=== PATIENT | male | born 1985 | race American Indian/Alaskan Native ===

== ENCOUNTER 2016-07-13 09:07 | Emergency (ER) | payer SELFPAY ==
[2016-07-13 09:16] VITALS: BP 149/94
--- NOTE | 2016-07-13 13:04 | Emergency Department Report ---
ED ENT HPI - General Chief complaint: Earache Stated complaint: RT EAR INFECTION Source: patient Mode of arrival: Ambulatory Limitations: No Limitations - History of Present Illness Initial comments: 31-year-old -[place] male complains of right ear ache for a week. Patient reports no relief using [id number] medications. Patient reports no past medical history currently takes no meds. There is no alleviating factors or aggravating factors. Patient has no known drug allergies. MD complaint: ear pain -: week(s) (1) - Related Data Previous Rx's Medication Instructions Recorded Last Taken Type Amoxicillin [Amoxicillin TAB] 875 mg PO BID #14 tablet 07/13/16 Unknown Rx Ofloxacin 0.3% [Floxin Otic] 3 drop OT QDAY #1 bottle 07/13/16 Unknown Rx Allergies Allergy/AdvReac Type Severity Reaction Status Date / Time No Known Allergies Allergy Unverified 07/13/16 09:14 ED Dental HPI - General Chief complaint: Earache Stated complaint: RT EAR INFECTION Source: patient Mode of arrival: Ambulatory Limitations: No Limitations - Related Data Previous Rx's Medication Instructions Recorded Last Taken Type Amoxicillin [Amoxicillin TAB] 875 mg PO BID #14 tablet 07/13/16 Unknown Rx Ofloxacin 0.3% [Floxin Otic] 3 drop OT QDAY #1 bottle 07/13/16 Unknown Rx Allergies Allergy/AdvReac Type Severity Reaction Status Date / Time No Known Allergies Allergy Unverified 07/13/16 09:14 ED Review of Systems ROS: Stated complaint: RT EAR INFECTION Other details as noted in HPI Constitutional: denies: chills, fever Eyes: denies: eye pain, eye discharge, vision change ENT: ear pain Respiratory: denies: cough, shortness of breath, wheezing Cardiovascular: denies: chest pain, palpitations Endocrine: no symptoms reported Gastrointestinal: denies: abdominal pain, nausea, diarrhea Genitourinary: denies: urgency, dysuria Musculoskeletal: denies: back pain, joint swelling, arthralgia Skin: denies: rash, lesions Neurological: denies: headache, weakness, paresthesias ED Past Medical Hx - Past Medical History Previous Medical History?: Yes Hx Hypertension: Yes (no meds) - Surgical History Past Surgical History?: No - Social History Smoking Status: Current Every Day Smoker Substance Use Type: Alcohol, Other - Medications Home Medications: Home Medications Medication Instructions Recorded Confirmed Last Taken Type Amoxicillin [Amoxicillin TAB] 875 mg PO BID #14 tablet 07/13/16 Unknown Rx Ofloxacin 0.3% [Floxin Otic] 3 drop OT QDAY #1 bottle 07/13/16 Unknown Rx ED Physical Exam - General Limitations: No Limitations General appearance: alert, in no apparent distress - Head Head exam: Present: atraumatic, normocephalic - Eye Eye exam: Present: normal appearance - Expanded ENT Exam Expanded TM/Canal exam: Erythema: Right TM, Mastoid Tenderness: Right TM, Canal Discharge : Right TM, Canal Tenderness: Right TM Mouth exam: Present: normal external inspection Throat exam: Positive: normal inspection. Negative: tonsillomegaly - Neck Neck exam: Present: normal inspection, full ROM. Absent: tenderness, lymphadenopathy ED Course Vital Signs 07/13/16 09:14 Temperature 99.2 F Pulse Rate 89 Respiratory 20 Rate Blood Pressure 149/94 O2 Sat by Pulse 99 Oximetry ED Medical Decision Making - Medical Decision Making Patient's been evaluated by this provider fast track. Discussed with patient this appears to be otitis external. Discussed with patient that we will place him on eardrops antibiotics. Discussed with patient that we will refer him to ear nose and throat provider. Discussed with patient he can take [id number] pain relief medication. Patient verbalizes understanding. Critical care attestation.: If time is entered above; I have spent that time in minutes in the direct care of this critically ill patient, excluding procedure time. ED Disposition Clinical Impression: External otitis of right ear Qualifiers: Otitis externa type: unspecified type Chronicity: acute Qualified Code(s): H60.501 - Unspecified acute noninfective otitis externa, right ear Disposition: DISCHARGED TO HOME OR SELFCARE Is pt being admited?: No Does the pt Need Aspirin: No Condition: Stable Instructions: Otitis Externa (ED) Additional Instructions: Take antibiotics as prescribed. Use eardrops antibiotics as prescribed. Follow up with her primary care provider or ear nose and throat. Prescriptions: Amoxicillin [Amoxicillin TAB] 875 mg PO BID #14 tablet Ofloxacin 0.3% [Floxin Otic] 3 drop OT QDAY #1 bottle Referrals: PRIMARY CAREMD [Primary Care Provider] - 3-5 Days LIOR MOREIRA MD [Staff Physician] - 3-5 Days Forms: Work/School Release Form(ED)
== END 2016-07-13 13:13 | disposition home or self-care (01) ==
LOC: ED 09:07
DX: H60.501 Unspecified acute noninfective otitis externa, right ear (principal); I10 Essential (primary) hypertension; F17.200 Nicotine dependence, unspecified, uncomplicated
CPT/HCPCS: 99282

== ENCOUNTER 2018-12-01 22:19 | Emergency (ER) | payer SELFPAY ==
[2018-12-01 22:32] VITALS: BP 164/88
[2018-12-01 22:59] LABS: Basophils % (Auto) 0.3 % (0.0-1.8); Hematocrit 48.5 % (35.5-45.6); Lymphocytes # (Auto) 1.9 K/mm3 (1.2-5.4); Mean Corpuscular HGB Conc 35 % (32-34); Mean Corpuscular Volume 89 fl (84-94); Monocytes # (Auto) 0.3 K/mm3 (0.0-0.8); Monocytes % (Auto) 2.4 % (0.0-7.3); Platelet Count 231 K/mm3 (140-440); Red Blood Count 5.44 M/mm3 (3.65-5.03); Red Cell Distribution Width 13.4 % (13.2-15.2)
[2018-12-01 23:24] LABS: Alanine Aminotransferase 22 units/L (7-56); BUN/Creatinine Ratio 11; Blood Urea Nitrogen 11 mg/dL (9-20); Calcium 10.2 mg/dL (8.4-10.2); Hemolysis Index 8
[2018-12-01 23:49] LABS: Bilirubin,Urine NEG (Negative); Blood,Urine NEG (Negative); Color,Urine Yellow (Yellow); Mucus,Urine FEW /HPF; Urobilinogen,Urine < 2.0 mg/dL (<2.0); WBC,Urine < 1.0 /HPF (0.0-6.0)
[2018-12-02] MEDS ORDERED: NACL 0.9% 1000 ML 1,000 ML IV ONE (00:59)
[2018-12-02] MEDS ORDERED: ZOFRAN IV STA (00:59)
--- NOTE | 2018-12-02 01:04 | Emergency Department Report ---
ED N/V/D HPI - General Chief complaint: Abdominal Pain Stated complaint: ABD PAIN, VOMITING Time Seen by Provider: 12/02/18 00:36 Source: patient Mode of arrival: Ambulatory Limitations: No Limitations - History of Present Illness Initial comments: 33-year-old [place]ian male as well as department complaining of sudden onset of nausea and vomiting and some mild diarrhea started after he started taking a drug detox medication. The drug detox was a natural detoxification that he bought off of [employer]. He states that he takes excessive amount of THC and has been trying to detox. Thanks that's when his symptoms began to emerge. She thinks he is experiencing some issues without the THC and also the detoxification medication. Also been having some weight loss, cough on and off for the last 7 months. About 7 months ago. He was around 230-240 pounds but has intermittently since that time due to a decreased appetite. States that he primarily drinks fluids, drinks alcohol and smokes THC and cigarettes. No hemoptysis, hematemesis, no hematochezia, no melanoma, no syncope, no seizure activity. MD complaint: nausea, vomiting, abdominal pain -: Sudden Description of Vomiting: watery Associated Abdominal Pain: Yes Location: epigastric Radiation: none Severity: mild Quality: aching, sharp Consistency: intermittent Improves with: none Worsens with: none Associated Symptoms: nausea/vomiting. denies: myalgias, chest pain, diaphoresis, malaise, shortness of breath, syncope, weakness - Related Data Previous Rx's Medication Instructions Recorded Last Taken Type Amoxicillin [Amoxicillin TAB] 875 mg PO BID #14 tablet 07/13/16 Unknown Rx Ofloxacin 0.3% [Floxin 0.3% Otic] 3 drop OT QDAY #1 bottle 07/13/16 Unknown Rx Ondansetron [Zofran Odt] 4 mg PO Q8HR #20 tab.rapdis 01/15/18 Unknown Rx Hyoscyamine Subl [Levsin Sl 0.125 0.125 mg SL Q6HR PRN #20 tab 12/02/18 Unknown Rx TAB] Ondansetron [Zofran ODT TAB] 8 mg PO Q12HR #14 tab.rapdis 12/02/18 Unknown Rx Allergies Allergy/AdvReac Type Severity Reaction Status Date / Time No Known Allergies Allergy Verified 01/15/18 23:41 ED Review of Systems ROS: Stated complaint: ABD PAIN, VOMITING Other details as noted in HPI Comment: All other systems reviewed and negative ED Past Medical Hx - Past Medical History Previous Medical History?: Yes Hx Hypertension: Yes (no meds) - Surgical History Past Surgical History?: Yes Additional Surgical History: hernia repair - Social History Smoking Status: Current Every Day Smoker - Medications Home Medications: Home Medications Medication Instructions Recorded Confirmed Last Taken Type Amoxicillin [Amoxicillin TAB] 875 mg PO BID #14 tablet 07/13/16 Unknown Rx Ofloxacin 0.3% [Floxin 0.3% Otic] 3 drop OT QDAY #1 bottle 07/13/16 Unknown Rx Ondansetron [Zofran Odt] 4 mg PO Q8HR #20 tab.rapdis 01/15/18 Unknown Rx Hyoscyamine Subl [Levsin Sl 0.125 0.125 mg SL Q6HR PRN #20 tab 12/02/18 Unknown Rx TAB] Ondansetron [Zofran ODT TAB] 8 mg PO Q12HR #14 tab.rapdis 12/02/18 Unknown Rx ED Physical Exam - General Limitations: No Limitations General appearance: alert, in no apparent distress - Head Head exam: Present: atraumatic, normocephalic - Eye Eye exam: Present: normal appearance, PERRL - ENT ENT exam: Present: normal exam, mucous membranes moist - Neck Neck exam: Present: normal inspection, full ROM - Respiratory Respiratory exam: Present: normal lung sounds bilaterally. Absent: respiratory distress, wheezes, rales, chest wall tenderness, accessory muscle use - Cardiovascular Cardiovascular Exam: Present: regular rate, normal rhythm. Absent: systolic murmur, diastolic murmur, rubs, gallop - GI/Abdominal GI/Abdominal exam: Present: soft, tenderness (the epigastric and mid gastric region. No willi sign, no Rovsing, no Ramírez Andrade), normal bowel sounds. Absent: guarding, hyperactive bowel sounds, hypoactive bowel sounds, organomegaly, mass, bruit, pulsatile mass - Rectal Rectal exam: Present: deferred - Extremities Exam Extremities exam: Present: normal inspection - Back Exam Back exam: Present: normal inspection - Neurological Exam Neurological exam: Present: alert, oriented X3 - Psychiatric Psychiatric exam: Present: normal affect, normal mood - Skin Skin exam: Present: warm, dry, intact, normal color. Absent: rash ED Course Vital Signs 12/01/18 22:30 Temperature 97.5 F L Pulse Rate 61 Respiratory 18 Rate Blood Pressure 164/88 O2 Sat by Pulse 100 Oximetry ED Medical Decision Making - Lab Data Result diagrams: 12/01/18 22:42 12/01/18 22:42 - Medical Decision Making 33-year-old -E[place] male, sore THC with frequent use presents with nausea and diarrhea, which may be related to partial detoxification, also possibly because detox tablets. He is using to rid himself the illicit drug. Laboratory data was relatively benign acute processes. Advised him of the need to follow-up with the primary care provider for further evaluation of his reported weight loss that was due to his appetite also recommend the [facility] substance abuse program to help as well. Critical care attestation.: If time is entered above; I have spent that time in minutes in the direct care of this critically ill patient, excluding procedure time. ED Disposition Clinical Impression: Nausea & vomiting, Moderate tetrahydrocannabinol (THC) dependence Disposition: DC- TO HOME OR SELFCARE Is pt being admited?: No Does the pt Need Aspirin: No Condition: Stable Instructions: Acute Nausea and Vomiting (ED), Cannabis Abuse (ED) Additional Instructions: To follow-up with primary care provider for further evaluation of your weight loss, nausea and vomiting. Laboratory data was was benign. CT scan showed no acute processes Prescriptions: Hyoscyamine Subl [Levsin Sl 0.125 TAB] 0.125 mg SL Q6HR PRN #20 tab PRN Reason: abdominal cramps and spasms Ondansetron [Zofran ODT TAB] 8 mg PO Q12HR #14 tab.rapdis Referrals: [facility] [Provider Group] - 3-5 Days [facility] [Provider Group] - 3-5 Days
--- NOTE | 2018-12-02 02:04 | Cat Scan Report ---
CT ABDOMEN AND PELVIS WITH CONTRAST INDICATION: MAIN: upper abdominal pain, NAUSEA, VOMITING, DIARRHEA. 100 ML OMNIAPQUE 300. TECHNIQUE: Axial CT images were obtained through the abdomen and pelvis after 100 cc Omnipaque [address] scans at this location are performed using CT dose reduction for ALARA by means of automated exposure control. COMPARISON: None available. FINDINGS: LOWER CHEST: No significant abnormality. LIVER: No significant abnormality. GALLBLADDER: No significant abnormality. BILE DUCTS: No significant abnormality. PANCREAS: No significant abnormality. SPLEEN: No significant abnormality. ADRENALS: No significant abnormality. RIGHT KIDNEY and URETER: No significant abnormality. LEFT KIDNEY and URETER: No significant abnormality. STOMACH and SMALL BOWEL: No significant abnormality. COLON: No significant abnormality. APPENDIX: No significant abnormality. PERITONEUM: No free fluid. No free air. No fluid collection. LYMPH NODES: No significant adenopathy. AORTA and ARTERIES: No significant abnormality. IVC and VEINS: No significant abnormality. URINARY BLADDER: No significant abnormality. REPRODUCTIVE ORGANS: No significant abnormality. ADDITIONAL FINDINGS: None. SKELETAL SYSTEM: No significant abnormality. IMPRESSION: 1. No significant abnormality. Signer Name: Darrell Rojas MD Signed: 12/02/2018 2:00 AM Workstation Name: [id number]
== END 2018-12-02 03:45 | disposition home or self-care (01) ==
LOC: ED 22:19
DX: F19.20 Other psychoactive substance dependence, uncomplicated (principal); R11.2 Nausea with vomiting, unspecified
CPT/HCPCS: 36415; 74177; 80053; 81001; 83690; 85025; 96361; 96374; 99284; J2405; J7030; Q9967

== ENCOUNTER 2020-04-17 08:05 | Emergency (ER) | payer SELFPAY ==
[2020-04-17 08:12] VITALS: BP 153/102
[2020-04-17 09:17] LABS: Basophils % (Auto) 0.2 % (0.0-1.8); Eosinophils # (Auto) 0.1 K/mm3 (0.0-0.4); Eosinophils % (Auto) 0.4 % (0.0-4.3); Hematocrit 46.9 % (35.5-45.6); Hemoglobin 16.3 gm/dl (11.8-15.2); Lymphocytes # (Auto) 2.3 K/mm3 (1.2-5.4); Lymphocytes % (Auto) 14.7 % (13.4-35.0); Mean Corpuscular HGB Conc 35 % (32-34); Mean Corpuscular Volume 89 fl (84-94); Monocytes # (Auto) 0.5 K/mm3 (0.0-0.8); Monocytes % (Auto) 3.2 % (0.0-7.3); Platelet Count 205 K/mm3 (140-440); Red Cell Distribution Width 13.5 % (13.2-15.2)
[2020-04-17 09:28] LABS: Bilirubin,Urine NEG (Negative); Blood,Urine SM (Negative); Color,Urine Yellow (Yellow); Mucus,Urine 3+ /HPF; Protein,Urine <15 mg/dL mg/dL (Negative); RBC,Urine < 1.0 /HPF (0.0-6.0); Urobilinogen,Urine < 2.0 mg/dL (<2.0); WBC,Urine < 1.0 /HPF (0.0-6.0)
[2020-04-17 09:38] LABS: Alanine Aminotransferase 19 units/L (7-56); Albumin 4.9 g/dL (3.9-5); BUN/Creatinine Ratio 7; Blood Urea Nitrogen 8 mg/dL (9-20); Calcium 10.1 mg/dL (8.4-10.2); Hemolysis Index 9
--- NOTE | 2020-04-17 10:11 | Emergency Department Report ---
ED General Adult HPI - General Chief complaint: Nausea/Vomiting/Diarrhea Stated complaint: VOMITTING/NAUSEA Time Seen by Provider: 04/17/20 08:13 Source: patient Mode of arrival: Ambulatory Limitations: No Limitations - History of Present Illness Initial comments: 35-year-old -Irish male patient presents with complaints of body aches, chills, and vomiting x3 days. He states history of hypertension. Patient denies any cough, shortness of breath, fever, sweats, headache, dizziness, abdominal pain, hematemesis/coffee-ground emesis, diarrhea, or urinary symptoms. Patient states the vomiting occurs usually just once a day in the morning. He states he is still tolerating foods and fluids. No history of abdominal surgeries per patient - Related Data Previous Rx's Medication Instructions Recorded Last Taken Type Amoxicillin [Amoxicillin TAB] 875 mg PO BID #14 tablet 07/13/16 Unknown Rx Ofloxacin 0.3% [Floxin 0.3% Otic] 3 drop OT QDAY #1 bottle 07/13/16 Unknown Rx Ondansetron [Zofran Odt] 4 mg PO Q8HR #20 tab.rapdis 01/15/18 Unknown Rx Hyoscyamine Subl [Levsin Sl 0.125 0.125 mg SL Q6HR PRN #20 tab 12/02/18 Unknown Rx TAB] Ondansetron [Zofran ODT TAB] 8 mg PO Q12HR #14 tab.rapdis 12/02/18 Unknown Rx Ondansetron [Zofran Odt] 4 mg PO Q8HR PRN #10 tab.rapdis 04/17/20 Unknown Rx Allergies Allergy/AdvReac Type Severity Reaction Status Date / Time No Known Allergies Allergy Verified 04/17/20 08:06 ED Review of Systems ROS: Stated complaint: VOMITTING/NAUSEA Other details as noted in HPI Constitutional: denies: chills, diaphoresis, fever, malaise, weakness Respiratory: denies: cough, shortness of breath Cardiovascular: denies: chest pain Gastrointestinal: nausea, vomiting. denies: abdominal pain, diarrhea, constipation Musculoskeletal: denies: joint swelling, arthralgia Skin: denies: rash, lesions, change in color Neurological: denies: headache Hematological/Lymphatic: denies: easy bleeding ED Past Medical Hx - Past Medical History Hx Hypertension: Yes (no meds) Hx Psychiatric Treatment: Yes - Surgical History Additional Surgical History: hernia repair - Social History Smoking Status: Current Every Day Smoker Substance Use Type: None - Medications Home Medications: Home Medications Medication Instructions Recorded Confirmed Last Taken Type Amoxicillin [Amoxicillin TAB] 875 mg PO BID #14 tablet 07/13/16 Unknown Rx Ofloxacin 0.3% [Floxin 0.3% Otic] 3 drop OT QDAY #1 bottle 07/13/16 Unknown Rx Ondansetron [Zofran Odt] 4 mg PO Q8HR #20 tab.rapdis 01/15/18 Unknown Rx Hyoscyamine Subl [Levsin Sl 0.125 0.125 mg SL Q6HR PRN #20 tab 12/02/18 Unknown Rx TAB] Ondansetron [Zofran ODT TAB] 8 mg PO Q12HR #14 tab.rapdis 12/02/18 Unknown Rx Ondansetron [Zofran Odt] 4 mg PO Q8HR PRN #10 tab.rapdis 04/17/20 Unknown Rx ED Physical Exam - General Limitations: No Limitations ED Course Vital Signs 04/17/20 08:11 Temperature 98.7 F Pulse Rate 77 Respiratory 20 Rate Blood Pressure 153/102 O2 Sat by Pulse 100 Oximetry ED Medical Decision Making - Lab Data Result diagrams: 04/17/20 09:01 04/17/20 09:01 Lab Results 04/17/20 04/17/20 04/17/20 Range/Units 08:29 09:01 09:01 WBC 15.5 H (4.5-11.0) K/mm3 RBC 5.30 H (3.65-5.03) M/mm3 Hgb 16.3 H (11.8-15.2) gm/dl Hct 46.9 H (35.5-45.6) % MCV 89 (84-94) fl MCH 31 (28-32) pg MCHC 35 H (32-34) % RDW 13.5 (13.2-15.2) % Plt Count 205 (140-440) K/mm3 Lymph % (Auto) 14.7 (13.4-35.0) % [place] % (Auto) 3.2 (0.0-7.3) % Eos % (Auto) 0.4 (0.0-4.3) % Baso % (Auto) 0.2 (0.0-1.8) % Lymph # (Auto) 2.3 (1.2-5.4) K/mm3 [place] # (Auto) 0.5 (0.0-0.8) K/mm3 Eos # (Auto) 0.1 (0.0-0.4) K/mm3 Baso # (Auto) 0.0 (0.0-0.1) K/mm3 Seg Neutrophils % 81.5 H (40.0-70.0) % Seg Neutrophils # 12.6 H (1.8-7.7) K/mm3 Sodium 143 (137-145) mmol/L Potassium 4.8 (3.6-5.0) mmol/L Chloride 103.5 (98-107) mmol/L Carbon Dioxide 31 H (22-30) mmol/L Anion Gap 13 mmol/L BUN 8 L (9-20) mg/dL Creatinine 1.2 (0.8-1.3) mg/dL Estimated GFR > 60 ml/min BUN/Creatinine Ratio 7 % Glucose 99 (75-100) mg/dL Calcium 10.1 (8.4-10.2) mg/dL Total Bilirubin 0.30 (0.1-1.2) mg/dL AST 17 (5-40) units/L ALT 19 (7-56) units/L Alkaline Phosphatase 44 (35-129) units/L Total Protein 7.9 (6.3-8.2) g/dL Albumin 4.9 (3.9-5) g/dL Albumin/Globulin Ratio 1.6 % Lipase 38 (13-60) units/L Urine Color Yellow (Yellow) Urine Turbidity Clear (Clear) Urine pH 5.0 (5.0-7.0) Ur Specific [place] 1.011 (1.003-1.030) Urine Protein <15 mg/dl (Negative) mg/dL Urine Glucose (UA) Neg (Negative) mg/dL Urine Ketones Neg (Negative) mg/dL Urine Blood Sm (Negative) Urine Nitrite Neg (Negative) Urine Bilirubin Neg (Negative) Urine Urobilinogen < 2.0 (<2.0) mg/dL Ur Leukocyte Esterase Neg (Negative) Urine WBC (Auto) < 1.0 (0.0-6.0) /HPF Urine RBC (Auto) < 1.0 (0.0-6.0) /HPF U Epithel Cells (Auto) < 1.0 (0-13.0) /HPF Urine Mucus 3+ /HPF - Radiology Data Radiology results: report reviewed CHEST 2 VIEWS INDICATION / CLINICAL INFORMATION: fatigue, elevated WBCs. COMPARISON: None available. FINDINGS: SUPPORT DEVICES: None. HEART / MEDIASTINUM: No significant abnormality. LUNGS / PLEURA: Clear lungs. No significant pleural effusion. No pneumothorax. ADDITIONAL FINDINGS: No significant additional findings. IMPRESSION: 1. No acute abnormality of the chest. - Medical Decision Making 35-year-old -Irish male patient presents with complaints of body aches, chills, and vomiting x3 days. He states history of hypertension. Patient denies any cough, shortness of breath, fever, sweats, headache, dizziness, abdominal pain, hematemesis/coffee-ground emesis, diarrhea, or urinary symptoms. Patient states the vomiting occurs usually just once a day in the morning. He states he is still tolerating foods and fluids. No history of abdominal surgeries per patient No abdominal pain noted on exam. White count noted to be 15.5. Chest x-ray is negative for any acute abnormalities. Patient states he is feeling well. WNL d ischarge home. Strict return precautions were discussed in detail with patient who verbalized understanding. Patient to follow-up with primary care doctor in 3 to 5 days. Critical care attestation.: If time is entered above; I have spent that time in minutes in the direct care of this critically ill patient, excluding procedure time. ED Disposition Clinical Impression: Viral syndrome Nausea & vomiting Qualifiers: Vomiting type: unspecified Vomiting Intractability: non-intractable Qualified Code(s): R11.2 - Nausea with vomiting, unspecified Disposition: DC-01 TO HOME OR SELFCARE Is pt being admited?: No Condition: Stable Instructions: Nausea and Vomiting, Adult, [id number], Viral Illness, Adult Prescriptions: Ondansetron [Zofran Odt] 4 mg PO Q8HR PRN #10 tab.rapdis PRN Reason: Nausea Referrals: PRIMARY CARE,MD [Primary Care Provider] - 3-5 Days
--- NOTE | 2020-04-17 11:01 | XRay Report ---
CHEST 2 VIEWS INDICATION / CLINICAL INFORMATION: fatigue, elevated WBCs. COMPARISON: None available. FINDINGS: SUPPORT DEVICES: None. HEART / MEDIASTINUM: No significant abnormality. LUNGS / PLEURA: Clear lungs. No significant pleural effusion. No pneumothorax. ADDITIONAL FINDINGS: No significant additional findings. IMPRESSION: 1. No acute abnormality of the chest. Signer Name: Tunde Freire MD Signed: 04/17/2020 10:56 AM Workstation Name: [id number]
== END 2020-04-17 11:12 | disposition home or self-care (01) ==
LOC: ED 08:05
DX: B34.9 Viral infection, unspecified (principal); I10 Essential (primary) hypertension; F17.200 Nicotine dependence, unspecified, uncomplicated; Z79.2 Long term (current) use of antibiotics; Z79.899 Other long term (current) drug therapy
CPT/HCPCS: 36415; 71046; 80053; 81001; 83690; 85025

== ENCOUNTER 2021-07-27 14:00 | Emergency (ER) | payer SELFPAY | END 2021-07-27 14:17 | disposition left against medical advice (07) | LOC: ED 14:00 | DX: R11.2 Nausea with vomiting, unspecified (principal); Z53.21 Procedure and treatment not carried out due to patient leaving prior to being seen by health care provider ==